=== PATIENT | female | born 1990 | race Caucasian/White ===

== ENCOUNTER 2018-07-25 18:47 | Inpatient (IN) | payer OTHER ==
[2018-07-25 20:53] LABS: ADD UMIC YES; UR ASCORBIC ACID NEGATIVE (NEGATIVE); UR BACTERIA FEW /HPF (NONE SEEN); UR BILIRUBIN (Dip) NEGATIVE (NEGATIVE); UR BLOOD (Dip) 3+ mg/dL (NEGATIVE); UR BUDDING YEAST FEW /HPF (NONE SEEN); UR CLARITY CLEAR (CLEAR); UR COLOR AMBER (YELLOW); UR GLUCOSE (Dip) NEGATIVE (NEGATIVE); UR KETONES (Dip) NEGATIVE (NEGATIVE); UR LEUKOCYTE ESTERASE (Dip) TRACE Leu/ul (NEGATIVE); UR NITRITE (Dip) NEGATIVE (NEGATIVE); UR RBC 1 /HPF (0-5); UR SPECIFIC GRAVITY (Dip) 1.005 (1.003-1.030); UR SQUAMOUS EPITHELIAL CELL FEW /HPF (FEW); UR TOTAL PROTEIN (Dip) NEGATIVE (NEGATIVE); UR UROBILINOGEN (Dip) 1+ mg/dL (NEGATIVE); UR WBC 9 /HPF (0-5)
[2018-07-26] MEDS ORDERED: BUTORPHANOL 2 MG INJ IV
[2018-07-26] MEDS ORDERED: BUTORPHANOL 1 MG INJ IV
[2018-07-26] MEDS ORDERED: LIDOCAINE 1% (MPF) 30 ML INJ INJ
[2018-07-26] MEDS: LACTATED RINGER'S 1,000 ML IV ×6 (00:24→17:24)
[2018-07-26 00:36] LABS: ADD MAN DIFF? NO
[2018-07-26 00:39] LABS: WHITE BLOOD COUNT 10.7 10^3/ul (4.8-10.8)
[2018-07-26 00:39] LABS: BASOPHILS % 0.3 % (0.0-2.0); EOSINOPHILS % 0.3 % (0.0-7.0); HEMATOCRIT 29.9 % (37.0-47.0); HEMOGLOBIN 10.4 g/dl (12.0-16.0); LYMPHOCYTES # 2.2 10^3/ul (0.8-2.9); LYMPHOCYTES % 20.1 % (15.0-51.0); MEAN CORPUSCULAR HEMOGLOBIN 29.7 pg (29.0-33.0); MEAN CORPUSCULAR HGB CONC 34.8 g/dl (32.0-37.0); MEAN CORPUSCULAR VOLUME 85.4 fl (82.0-101.0); MEAN PLATELET VOLUME 10.5 fl (7.4-10.4); MONOCYTE # 0.6 10^3/ul (0.3-0.9); MONOCYTES % 5.5 % (0.0-11.0); NEUTROPHIL # 7.9 10^3/ul (1.6-7.5); NEUTROPHILS % 73.4 % (39.0-77.0); PLATELET COUNT 306 10^3/UL (140-415); RED CELL DISTRIBUTION WIDTH 12.3 % (11.5-14.5)
[2018-07-26 00:58] LABS: INR 0.89; PROTIME 12.2 Sec (11.9-14.9)
[2018-07-26 00:59] LABS: PARTIAL THROMBOPLASTIN TIME 28.3 Sec (23.0-35.0)
[2018-07-26 01:30] LABS: HEPATITIS B SURFACE ANTIGEN NEGATIVE (NEGATIVE)
[2018-07-26] MEDS ORDERED: FENTAnyl 2MCG/ML-ROPIV 0.2% 100 ML BAG EPI (01:30)
[2018-07-26] MEDS ORDERED: DIPHENHYDRAMINE 50 MG INJ IV ×3 (01:30→04:00)
[2018-07-26] MEDS ORDERED: NALOXONE (0.4 MG/ML) INJ IV ×2 (01:30→04:00)
[2018-07-26] MEDS ORDERED: PHENYLephrine (100 MCG/ML) 10ML SYG ×2 (02:45→03:23)
[2018-07-26] MEDS ORDERED: OXYTOCIN 30 UNITS/LR 500 ML BAG IV (02:46)
[2018-07-26] MEDS ORDERED: EPHEDrine 25 MG/5 ML SYG (02:46)
[2018-07-26] MEDS ORDERED: morphine SULFATE/PF (10 MG/10 ML) INJ (03:01)
[2018-07-26] MEDS ORDERED: OXYTOCIN 30 UNITS/LR 500 ML IV ×4 (03:06→04:00)
[2018-07-26 03:56] LABS: AADO2 Cord Arterial 35.1 mmHg; CBA Base Excess -19.8 mmol/L; CBA COHb 0.3 %; CBV Base Excess -17.8 mmol/L; CBV COHb 0.3 %; CBV Total Hemglobin 13.6 g/dl; Cord Blood Arterial pO2 12.8 mmHG (15.0-45.0); Cord Blood Venous pO2 13.1 mmHG (15.0-45.0); Fraction OxyHgb Cord Arterial 10.8 %; Fraction OxyHgb Cord Venous 11.1 %; MODE ROOM AIR; MetHgb Cord Arterial 2.4 %; MetHgb Cord Venous 2.1 %; Sample Type Blood venous; Site CORD
[2018-07-26] MEDS ORDERED: ZOLPIDEM 5 MG TAB PO (04:00)
[2018-07-26] MEDS ORDERED: FENTAnyl 50 MCG/ML VIAL IV ×3 (04:00)
[2018-07-26] MEDS ORDERED: PROCHLORPERAZINE 10 MG INJ IV (04:00)
[2018-07-26] MEDS ORDERED: HYDROmorphONE 0.5 MG/0.5 ML SYG IV ×2 (04:00)
[2018-07-26] MEDS ORDERED: HYDROmorphONE 1 MG/5 ML IV SYRINGE IV ×3 (04:00)
[2018-07-26] MEDS ORDERED: EPHEDrine SULFATE 50 MG/5 ML SYG IV (04:00)
[2018-07-26] MEDS ORDERED: MEPERIDINE 25 MG INJ IV (04:00)
[2018-07-26] MEDS ORDERED: KETOROLAC 30 MG INJ IV (04:00)
[2018-07-26] MEDS ORDERED: ONDANSETRON 4 MG INJ IV ×2 (04:00)
[2018-07-26] MEDS ORDERED: CARBOPROST 250 MCG INJ IM ×2 (04:00)
[2018-07-26] MEDS ORDERED: METHYLERGONOVINE 0.2 MG INJ IM ×2 (04:00)
[2018-07-26] MEDS ORDERED: MISOPROSTOL 200 MCG TAB PR ×2 (04:00)
[2018-07-26] MEDS: OXYTOCIN 30 UNITS/LR 500 ML IV ×2 (04:58→08:49)
[2018-07-26 07:39] LABS: ADD MAN DIFF? NO
[2018-07-26 07:40] LABS: WHITE BLOOD COUNT 9.3 10^3/ul (4.8-10.8)
[2018-07-26 07:40] LABS: BASOPHILS % 0.2 % (0.0-2.0); EOSINOPHILS % 0.1 % (0.0-7.0); HEMATOCRIT 21.1 % (37.0-47.0); HEMOGLOBIN 7.3 g/dl (12.0-16.0); LYMPHOCYTES # 1.6 10^3/ul (0.8-2.9); LYMPHOCYTES % 16.6 % (15.0-51.0); MEAN CORPUSCULAR HEMOGLOBIN 30.4 pg (29.0-33.0); MEAN CORPUSCULAR HGB CONC 34.6 g/dl (32.0-37.0); MEAN CORPUSCULAR VOLUME 87.9 fl (82.0-101.0); MEAN PLATELET VOLUME 10.4 fl (7.4-10.4); MONOCYTE # 0.5 10^3/ul (0.3-0.9); MONOCYTES % 5.4 % (0.0-11.0); NEUTROPHIL # 7.2 10^3/ul (1.6-7.5); NEUTROPHILS % 77.3 % (39.0-77.0); PLATELET COUNT 184 10^3/UL (140-415); RED CELL DISTRIBUTION WIDTH 12.5 % (11.5-14.5)
[2018-07-26 08:06] LABS: INR 1.12; PARTIAL THROMBOPLASTIN TIME 32.5 Sec (23.0-35.0); PROTIME 14.5 Sec (11.9-14.9); PT RATIO 1.1
[2018-07-26] MEDS: ONDANSETRON 4 MG INJ IV (08:51)
[2018-07-26 14:19] LABS: ADD MAN DIFF? NO
[2018-07-26 14:22] LABS: WHITE BLOOD COUNT 11.8 10^3/ul (4.8-10.8)
[2018-07-26 14:22] LABS: BASOPHILS % 0.2 % (0.0-2.0); HEMATOCRIT 23.3 % (37.0-47.0); HEMOGLOBIN 8.1 g/dl (12.0-16.0); LYMPHOCYTES # 1.4 10^3/ul (0.8-2.9); LYMPHOCYTES % 11.5 % (15.0-51.0); MEAN CORPUSCULAR HEMOGLOBIN 30.6 pg (29.0-33.0); MEAN CORPUSCULAR HGB CONC 34.8 g/dl (32.0-37.0); MEAN CORPUSCULAR VOLUME 87.9 fl (82.0-101.0); MEAN PLATELET VOLUME 10.6 fl (7.4-10.4); MONOCYTE # 0.7 10^3/ul (0.3-0.9); MONOCYTES % 6.2 % (0.0-11.0); NEUTROPHIL # 9.6 10^3/ul (1.6-7.5); NEUTROPHILS % 81.6 % (39.0-77.0); PLATELET COUNT 207 10^3/UL (140-415); RED BLOOD COUNT 2.65 10^6/ul (4.20-5.40); RED CELL DISTRIBUTION WIDTH 12.9 % (11.5-14.5)
[2018-07-26] MEDS: KETOROLAC 30 MG INJ IV (20:51)
[2018-07-26 21:09] LABS: RAPID PLASMA REAGIN NONREACTIVE (NR)
[2018-07-27] MEDS: KETOROLAC 30 MG INJ IV (02:47)
[2018-07-27] MEDS ORDERED: KETOROLAC 30 MG INJ IV (03:05)
[2018-07-27 08:00] LABS: ADD MAN DIFF? NO
[2018-07-27 08:04] LABS: ABNORMAL IP MESSAGE 1; BASOPHILS % 0.2 % (0.0-2.0); EOSINOPHILS # 0.1 10^3/ul (0.0-0.5); EOSINOPHILS % 0.6 % (0.0-7.0); HEMATOCRIT 18.8 % (37.0-47.0); LYMPHOCYTES # 1.6 10^3/ul (0.8-2.9); LYMPHOCYTES % 12.4 % (15.0-51.0); MEAN CORPUSCULAR HEMOGLOBIN 30.3 pg (29.0-33.0); MEAN CORPUSCULAR VOLUME 89.1 fl (82.0-101.0); MEAN PLATELET VOLUME 10.2 fl (7.4-10.4); MONOCYTE # 0.8 10^3/ul (0.3-0.9); MONOCYTES % 6.2 % (0.0-11.0); PLATELET COUNT 176 10^3/UL (140-415); RED BLOOD COUNT 2.11 10^6/ul (4.20-5.40); RED CELL DISTRIBUTION WIDTH 13.1 % (11.5-14.5)
[2018-07-27 08:04] LABS: WHITE BLOOD COUNT 12.5 10^3/ul (4.8-10.8)
[2018-07-27 08:26] LABS: POSITIVE DIFF @See below
[2018-07-27 08:29] LABS: HEMOGLOBIN 6.4 g/dl (12.0-16.0)
[2018-07-27 15:56] LABS: IMMEDIATE SPIN CROSSMATCH 1 4
[2018-07-27] MEDS: SOD CHLORIDE 0.9% 1,000 ML IV (20:04)
[2018-07-28] MEDS: OXYCODONE/ACETAMINOPHEN (5/325) TAB PO ×2 (02:27→19:57)
[2018-07-28] MEDS: SOD CHLORIDE 0.9% 1,000 ML IV ×2 (06:00→16:00)
[2018-07-28 08:42] LABS: ADD MAN DIFF? NO
[2018-07-28 08:45] LABS: WHITE BLOOD COUNT 12.5 10^3/ul (4.8-10.8)
[2018-07-28 08:45] LABS: BASOPHILS % 0.2 % (0.0-2.0); EOSINOPHILS # 0.1 10^3/ul (0.0-0.5); HEMATOCRIT 25.2 % (37.0-47.0); HEMOGLOBIN 8.8 g/dl (12.0-16.0); LYMPHOCYTES # 1.7 10^3/ul (0.8-2.9); LYMPHOCYTES % 13.3 % (15.0-51.0); MEAN CORPUSCULAR HEMOGLOBIN 30.9 pg (29.0-33.0); MEAN CORPUSCULAR HGB CONC 34.9 g/dl (32.0-37.0); MEAN CORPUSCULAR VOLUME 88.4 fl (82.0-101.0); MEAN PLATELET VOLUME 10.7 fl (7.4-10.4); MONOCYTE # 0.7 10^3/ul (0.3-0.9); MONOCYTES % 5.3 % (0.0-11.0); NEUTROPHILS % 79.7 % (39.0-77.0); PLATELET COUNT 235 10^3/UL (140-415); RED BLOOD COUNT 2.85 10^6/ul (4.20-5.40); RED CELL DISTRIBUTION WIDTH 13.1 % (11.5-14.5)
[2018-07-28] MEDS: DIPHTH/TET/ACEL PERTUSS (ADULT) 0.5 ML VIAL IM* (10:37)
[2018-07-28] MEDS: IBUPROFEN 600 MG TAB PO (12:10)
[2018-07-28] MEDS: LANOLIN HPA 1 PKT TOP (19:58)
[2018-07-29] MEDS: SOD CHLORIDE 0.9% 1,000 ML IV (02:00)
[2018-07-29] MEDS: OXYCODONE/ACETAMINOPHEN (5/325) TAB PO ×2 (05:52→16:51)
[2018-07-29] MEDS ORDERED: DIPHTH/TET/ACEL PERTUSS (ADULT) 0.5 ML VIAL IM* (09:00)
[2018-07-29] MEDS: MEASLES,MUMPS,RUBELLA VACCINE INJ SC* (10:09)
[2018-07-29 13:17] LABS: RUBELLA ANTIBODY - IGG <0.90 index; RUBELLA ANTIBODY - IGM <20.00 AU/mL
[2018-07-29] MEDS: IBUPROFEN 600 MG TAB PO (15:15)
== END 2018-07-29 18:38 | disposition home or self-care (01) | DRG 788 ==
LOC: OBT 18:47 → L-D 07-26 02:36 → OBT 23:25 → PP1 07-26 06:56 → L-D 23:25
PROC: 10D00Z1 Extraction of Products of Conception, Low, Open Approach (ICD-10-PCS; principal; 2018-07-26)
DX: O77.0 Labor and delivery complicated by meconium in amniotic fluid (principal); O76 Abnormality in fetal heart rate and rhythm complicating labor and delivery; Z3A.39 39 weeks gestation of pregnancy; Z37.0 Single live birth
CPT/HCPCS: 36415; 36430; 36600; 62319; 81001; 82803; 85025; 85384; 85610; 85730; 86592; 86762; 86850; 86900; 86901; 86920; 87340; 88307; 90715; 93005; 99464

== ENCOUNTER 2018-11-21 10:40 | Emergency (ER) | payer OTHER | END 2018-11-21 12:57 | disposition home or self-care (01) | LOC: FTE 12:57 | DX: L30.9 Dermatitis, unspecified (principal) | CPT/HCPCS: 99283; Z7502 ==